=== PATIENT | male | born 1930 | race Caucasian/White ===

== ENCOUNTER 2016-07-03 06:59 | Emergency (ER) | payer MEDICARE ==
[~2016-07-03 06:59] MED LIST: ASCO500C6 PO; ASPI-973 PO; BUDE3CAP7 PO; CHOL200025 PO; FINA5TAB2 PO; IRON1TAB PO; LISI-571 PO; MELA1TAB11 PO; MESA500C PO; METO50TA7 PO; NITR0.4T6 SL; OMEP20CA11 PO; OXYC5TAB72 PO; POLY17PO6 PO; SIMV40TA5 PO; TAMS0.4C29 PO
[2016-07-03 07:03] VITALS: BP 209/109; PULSE 69; RESP 20; O2SAT 97
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
[2016-07-03] MEDS ORDERED: HYDROcodone-APAP 7.5-325 mg Tablet PO ONE (07:35)
--- NOTE | 2016-07-03 08:27 | DRSVH ---
PROCEDURE: X-RAY LEFT SHOULDER, MINIMUM TWO VIEWS ([id number]) INDICATIONS: pain TECHNIQUE: 3 views of the shoulder were acquired. COMPARISON: None. FINDINGS: Bones: No fractures or dislocations. No suspicious bony lesions. Visualized ribs appear intact. M oderate left shoulder joint degeneration Soft tissues: No suspicious soft tissue calcifications. IMPRESSION: Moderate left shoulder joint degeneration. No fracture Dictated by: Mat Metcalf M.D. on 07/03/2016 at 8:25 Approved by: Mat Metcalf M.D. on 07/03/2016 at 8:26
[2016-07-03] MEDS ORDERED: IBUP-1827 PO (08:31)
[2016-07-03 08:33] VITALS: BP 172/86; PULSE 66; RESP 15; O2SAT 97
== END 2016-07-03 08:38 | disposition home or self-care (01) ==
LOC: SED 06:59
DX: S43.402A Unspecified sprain of left shoulder joint, initial encounter (principal); V89.2XXA Person injured in unspecified motor-vehicle accident, traffic, initial encounter; Y92.410 Unspecified street and highway as the place of occurrence of the external cause; Y93.89 Activity, other specified; Y99.8 Other external cause status; I25.10 Atherosclerotic heart disease of native coronary artery without angina pectoris; M25.512 Pain in left shoulder; I25.2 Old myocardial infarction; I10 Essential (primary) hypertension; K21.9 Gastro-esophageal reflux disease without esophagitis; E78.5 Hyperlipidemia, unspecified; Z98.1 Arthrodesis status; Z95.818 Presence of other cardiac implants and grafts; Z87.891 Personal history of nicotine dependence; Z79.82 Long term (current) use of aspirin